=== PATIENT | male | born 1950 | race Caucasian/White ===

== ENCOUNTER 2016-10-24 16:06 | Inpatient (IN) | payer OTHER ==
--- NOTE | ~2016-10-24 | CN ---
Consultation Report [facility] [address] [place]. [address] NAME: ISHMAEL ALFREDO : 48 STATUS : ADM IN PAT#: [id number] AGE: 66 ADM/REG DATE : 10/24/16 MR#: [id number] REPORT SERV DATE: 10/24/16 DICTATED BY: ULISES ALCALA DATE: 10/24/16 REPORT STATUS : Draft TRANSCRIBED BY: MODL DATE: 10/24/16 CONSULTATION DATE OF CONSULTATION: 10/24/2016 REASON FOR CONSULTATION: Diabetes management. HISTORY OF PRESENT ILLNESS: The patient is a 66-year-old white gentleman with a past medical history of coronary artery disease, status post coronary artery bypass grafting by Dr. Broderick in 11/2015 as well as type 2 diabetes and hypertension, who presents to the CCU following an dch-up-swctdmqt cardiac arrest. The patient had been feeling well and was in the gym exercising, walking at a normal pace, doing his cool down on a treadmill. He was not doing anything extraordinary. No more exercises than he typically does when he suddenly lost consciousness and fell on the ground. Bystander said he lost a pulse, and he started doing CPR. When EMS arrived or when they put the AED on him, there was a shockable rhythm, so he got shocked one time and after that had return of spontaneous circulation with regaining his consciousness. The patient says that prior to the episode, he had no shortness of breath, no chest pain. He says he has been feeling well lately. He said really he has had no other issues right now. He is feeling well, just has a little bit of a headache, but otherwise doing okay. PAST MEDICAL HISTORY: 1. Coronary artery disease, status post coronary artery bypass grafting in 2016. 2. Hyperlipidemia. 3. Type 2 diabetes. 4. Hypertension. 5. Chronic anemia. HOME MEDICATIONS: See medication reconciliation form. ALLERGIES: NO KNOWN DRUG ALLERGIES. SOCIAL HISTORY: No tobacco or alcohol. Remote history of tobacco use. FAMILY HISTORY: Reviewed and positive for coronary artery disease, diabetes, and chronic kidney disease. REVIEW OF SYSTEMS: A 10-point review of systems is negative except as mentioned in the HPI. PHYSICAL EXAMINATION: VITAL SIGNS: Temperature 97.9, heart rate 64, respiratory rate 16, and blood pressure 125/65. GENERAL: No acute distress. Consultation Report [facility] [address] [place]. [address] NAME: ISHMAEL ALFREDO : [birth year] STATUS : ADM IN [facility]#: [id number] AGE: 66 ADM/REG DATE : 10/24/16 MR#: [id number] REPORT SERV DATE: 10/24/16 DICTATED BY: ULISES ALCALA DATE: 10/24/16 REPORT STATUS : Draft TRANSCRIBED BY: CASSANDRA DATE: 10/24/16 HEENT: Pupils are equal, round, and reactive to light. Extraocular movements are intact. Oropharynx is clear. Moist mucous membranes. NECK: Supple. Nontender. No lymphadenopathy. No thyromegaly. No jugular venous distention. LUNGS: Clear to auscultation bilaterally. CARDIOVASCULAR: Regular rate and rhythm. No murmurs, rubs, or gallops. ABDOMEN: Soft, nontender, nondistended. Positive bowel sounds. No hepatosplenomegaly. EXTREMITIES: No cyanosis, clubbing, or edema. NEUROLOGIC: Alert and oriented x3. Cranial nerves intact PSYCH: Mood appropriate. LABS AND IMAGING: Head CT with no acute process. Metabolic profile unremarkable. Troponin 0.06. Blood gas within normal limits. CBC within normal limits. ASSESSMENT AND PLAN: The patient is a 66-year-old gentleman with a past medical history of coronary artery disease, status post coronary bypass grafting in the last year as well as diabetes and hypertension, who presents with following an lmd-ds-rqfcfohv cardiac arrest. 1. Uuc-yt-brxgenjy cardiac arrest. It sounds like is either ventricular fibrillation or ventricular tachycardia as he required a shock by the defibrillator. We will defer to primary cardiac team for management of this. 2. Type [address] him on sliding scale. Hold his home metformin for now. Place him on diabetic diet. 3. Hypertension. Blood pressure is well controlled. We will continue his home medications. 4. The patient will be on deep venous thrombosis and gastrointestinal prophylaxis. 5. Appreciate the consult. We will continue to follow along with you. Please call with questions. FLAKITA/CASSANDRA Ulises Alcala MD / [id number] CC: Dav Baron M.D.
--- NOTE | ~2016-10-24 | CN ---
Consultation Report [facility] [address] [place]. [address] NAME: ISHMAEL ALFREDO : [birth year] STATUS : ADM IN PAT#: [id number] AGE: 66 ADM/REG DATE : 10/24/16 MR#: [id number] REPORT SERV DATE: 10/25/16 DICTATED BY: AXEL BARON DATE: 10/24/16 REPORT STATUS : Draft TRANSCRIBED BY: MODL DATE: 10/24/16 DATE OF CONSULTATION: 10/24/2016 PRIMARY PRIVATE CHEF: Dr. Hill. REFERRING PHYSICIAN: Dr. Carmichael in the ER. CHIEF COMPLAINT: Loss of consciousness. REASON FOR CONSULTATION: Possible out of hospital cardiac arrest. SOURCE: Patient, his family, and the chart. HISTORY OF PRESENT ILLNESS: Mr. Alfredo is a very pleasant 66-year-old white man with coronary artery disease status post coronary artery bypass grafting by Dr. Broderick at [facility] in 11/2015. He was in his usual state of health until today when he was walking on a treadmill and then lost consciousness and woke up in the ambulance on the way to [facility]. He lost consciousness and has no recollection of the events. Reportedly, he was resuscitated by EMS and flown by [employer] to [place]. He did not have any chest pain before the event and now has only mild soreness. No shortness of breath, palpitations, or syncope. He does not have any facial pain. He is bleeding from the skin on his face. EKG was obtained in the ER and we were asked to see him in consultation. REVIEW OF SYSTEMS: All other systems are negative. ALLERGIES: NO KNOWN DRUG ALLERGIES. MEDICATIONS: As per his home list include aspirin 81 mg a day, statin 20 mg a day, metoprolol 25 daily, metformin 1000 mg b.i.d., lisinopril 10 mg daily, fish oil, and fenofibrate. CARDIAC RISK FACTORS: Include diabetes, hypertension, cholesterol, family history, and former tobacco use. PAST MEDICAL HISTORY: Significant for coronary artery disease status post coronary artery bypass grafting to three vessels [address] Dr. Broderick in 11/2015. Denies any prior stroke or other surgeries. SOCIAL HISTORY: The patient lives in [place]. He is . He has one son who now has leukemia and needs a bone marrow transplant. 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 FAMILY HISTORY: Negative for coronary artery disease at young age. PHYSICAL EXAMINATION: Consultation Report [place] [id number] [facility]. [address] NAME: ISHMAEL ALFREDO : [birth year] STATUS : ADM IN [facility]#: [id number] AGE: 66 ADM/REG DATE : 10/24/16 MR#: [id number] REPORT SERV DATE: 10/25/16 DICTATED BY: AXEL BARON DATE: 10/24/16 REPORT STATUS : Draft TRANSCRIBED BY: CASSANDRA DATE: 10/24/16 GENERAL: He is a well developed, well nourished, elderly white man, in no acute distress. Bleeding from his face. VITAL SIGNS: The blood pressure is 110/64, pulse 70, oxygen saturation 98% on 2 L, temperature is grossly afebrile at 97.9 per his ER sheet. HEENT: There is dried blood all over his face. No bruising. Sclerae are anicteric. Lips are without cyanosis. Carotids are 2+ and symmetrical. NECK: No bruits. No JVD. No thyromegaly. LUNGS: Clear to auscultation. No use of accessory muscles. HEART: Regular rate and rhythm, without murmur, gallop, or rub. ABDOMEN: Positive bowel sounds. Soft, nontender, obese. CHEST: Healed sternotomy. EXTREMITIES: Pulses are 2+ and symmetrical. No cyanosis, clubbing, or edema. BACK: No CVA tenderness. MUSCULOSKELETAL: Good tone. NEUROLOGIC: Alert and oriented x3. IMAGING: EKG: Sinus rhythm with a first-degree AV block, nonspecific ST-T wave changes, appear similar from EKG 1 to EKG 2. LABORATORY DATA: I-STAT labs: Sodium 140, potassium 5.7, chloride 101, CO2 of 24, glucose 175, BUN 23, creatinine 0.9, hematocrit 44. IMPRESSION: 1. Status post syncopal episode or out of hospital cardiac arrest, successfully resuscitated. No strips available. Occurred while he was on a treadmill today. 2. Potassium 5.7 on i-STAT labs. 3. Coronary artery disease status post coronary artery bypass grafting on 11/24/[address] Broderick at [facility] reportedly to 3 vessels. 4. Cardiac risk factors including diabetes, hypertension, cholesterol, former tobacco, and positive family history. 5. Facial injuries. RECOMMENDATIONS: 1. Complete database, check potassium stat. 2. ICU care. 3. Clean and dress wounds. 4. Check serial EKGs and enzymes. 5. Beta-librado. 6. Stop OTTO inhibitor. 7. Echocardiogram for left ventricular systolic function. LAURE/CASSANDRA Consultation Report [place] [address] [address] NAME: ISHMAEL ALFREDO : [birth year] STATUS : ADM IN [facility]#: [id number] AGE: 66 ADM/REG DATE : 10/24/16 MR#: [id number] REPORT SERV DATE: 10/25/16 DICTATED BY: AXEL BARON DATE: 10/24/16 REPORT STATUS : Draft TRANSCRIBED BY: CASSANDRA DATE: 10/24/16 Axel Baron M.D. / [id number] CC: Axel Baron M.D.
--- NOTE | ~2016-10-24 | CN ---
Consultation Report [facility] [address] [place]. [address] NAME: ISHMAEL ALFREDO : [birth year] STATUS : ADM IN PAT#: [id number] AGE: 66 ADM/REG DATE : 10/24/16 MR#: [id number] REPORT SERV DATE: 10/25/16 DICTATED BY: ULISES PAYTON DATE: 10/25/16 REPORT STATUS : Draft TRANSCRIBED BY: MODL DATE: 10/25/16 EP CONSULTATION DATE OF CONSULTATION: INDICATION: Qqv-iw-laywdwhk cardiac arrest. HISTORY OF PRESENT ILLNESS: The patient is a 66-year-old white male, who underwent coronary bypass grafting on 11/24/2015 with a WU to the LAD and vein graft to OM2 and PDA. He has been asymptomatic since that time. He was working out at a gym in [place], [place] and after completing his workout (he states he usually runs about 3.8 to 3.6 miles an hour at 3% incline for 40 minutes), he lost consciousness. An off-duty master police detective was there, and an AED was present. The AED detected a lethal arrhythmia and delivered a shock. CPR was continued for one minute post shock. The patient came to and was immediately conscious without residual effects. He was life-flighted to [place]. He noted no symptoms prior to his event. He states when he awakened, it was a surprise to him that he was on the floor. CURRENT HOME MEDICATIONS: Aspirin 81 a day, fenofibrate 160 at h.s., lisinopril 10 per day, metformin 1000 b.i.d., metoprolol succinate 25 ER daily, multivitamins daily, nitroglycerin 0.4 p.r.n., omega-3 fatty acids 1000 daily, polyethylene glycol daily, rosuvastatin 20 at h.s.; and sitagliptin 100 per day. ALLERGIES OR INTOLERANCES: None known. SOCIAL HISTORY: Lives in [place]. . Has one son, who also has leukemia and needs a bone marrow transplant. 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 FAMILY HISTORY: Positive for siblings with coronary artery disease in their 50s and other relatives with coronary artery disease in their 50s. PAST MEDICAL HISTORY/REVIEW OF SYSTEMS: Positive for diabetes, hypertension, hyperlipidemia, and previous tobacco use. PHYSICAL EXAMINATION: GENERAL: Pleasant 66-year-old white male, no acute distress. VITAL SIGNS: Blood pressure 110/60, pulse 70, respirations 18. SKIN: No xanthelasmas. 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 NECK: JVD is not elevated. No carotid bruits. CHEST: No crackles. CARDIAC: S1 normal, S2 physiologic. Consultation Report [address] [place]. [address] NAME: ISHMAEL ALFREDO : [birth year] STATUS : ADM IN PAT#: [id number] AGE: 66 ADM/REG DATE : 10/24/16 MR#: [id number] REPORT SERV DATE: 10/25/16 DICTATED BY: ULISES PAYTON DATE: 10/25/16 REPORT STATUS : Draft TRANSCRIBED BY: CASSANDRA DATE: 10/25/16 ABDOMEN: Soft. EXTREMITIES: Without edema. No clubbing. NEUROLOGIC: No focal deficits. MUSCULOSKELETAL: No kyphosis. IMPRESSION: Rhb-ty-ptssicsd cardiac arrest with all indications suggestive of a VT/VF arrest. We will plan ICD implantation for secondary prevention. SARAH/CASSANDRA Ulises Payton M.D. / [id number] CC: Dav Baron M.D. [facility]
[2016-10-24 14:34] LABS: BASOPHILS 0.8 %; BASOPHILS ABSOLUTE 0.06 10/3/uL (0.0-0.16); EOSINOPHILS 9.2 %; EOSINOPHILS ABSOLUTE 0.73 10/3/uL (0.0-0.53); ER CBC TAT 0 Hrs 07 Mins; HEMATOCRIT 39.2 % (40.0-51.0); HEMOGLOBIN 13.4 g/dL (13.6-17.8); IMMATURE GRANULOCYTES 0.1 %; IMMATURE GRANULOCYTES ABSOLUTE 0.01 10/3/uL (0.0-0.11); LYMPHOCYTES 21.6 %; LYMPHOCYTES ABSOLUTE 1.71 10/3/uL (0.67-4.30); MEAN CORPUS HGB CONC 34.2 g/dL (32.0-36.0); MEAN CORPUSCULAR HEMOGLOB 29.8 pg (26.0-34.0); MEAN CORPUSCULAR VOLUME 87.1 fL (80-100); MEAN PLATELET VOLUME 10.3 fL (9.2-13.0); MONOCYTES 4.9 %; MONOCYTES ABSOLUTE 0.39 10/3/uL (0.21-1.20); NEUTROPHILS 63.4 %; NEUTROPHILS ABSOLUTE 5.01 10/3/uL (2.02-8.40); PLATELET COUNT 204 10/3/uL (150-400); WHITE BLOOD CELLS 7.9 10/3/uL (4.5-10.5)
[2016-10-24 14:35] LABS: MANUAL DIFF NO %
[2016-10-24 14:44] LABS: PARTIAL THROMBO TIME 25.2 SEC (22.5-37.2)
[2016-10-24 14:46] LABS: PROTIME (NOT ORD) 13.1 SEC (12.0-14.5)
[2016-10-24 14:58] LABS: A/G RATIO 1.1 (0.7-1.9); ALBUMIN 3.9 G/DL (3.5-5.0); ALKALINE PHOSPHATASE 71 U/L (45-117); BUN (BLOOD UREA NITROGEN) 17 MG/DL (6-23); CALCIUM, SERUM 8.7 MG/DL (8.5-10.4); CHLORIDE, SERUM 107 MMOL/L (96-112); CO2 (CARBON DIOXIDE) 26 MMOL/L (24-34); CREATININE 0.97 MG/DL (0.70-1.30); GFR AFRICAN AMERICAN 93 ML/MIN (>=60); GFR NON AFRICAN AMERICAN 80 ML/MIN (>=60); GLOBULIN 3.4 G/DL (2.5-4.1); GLUCOSE, SERUM 154 MG/DL (60-99); POTASSIUM, SERUM 4.1 MMOL/L (3.5-5.3); SGOT(AST) 105 U/L (5-40); SGPT(ALT) 86 U/L (5-65); TOTAL BILIRUBIN 0.6 MG/DL (0-1.2); TOTAL PROTEIN 7.3 G/DL (6.0-8.5)
[2016-10-24 14:59] LABS: ALLENS TEST Pos; BE (BASE EXCESS) -2.9 MEQ/L (0 +/- 2.5); CARBOXYHEMOGLOBIN 1.2 % (0-3); DEVICE NC; HCO3 (ACTUAL BICARBONATE) 21.8 MEQ/L (23-27); HEMOBLOGIN CONTENT 13.4 G/DL (14-18); INSTRUMENT SERIAL # 8087; METHEMOGLOBIN 0.3 % (0-3); O2 CONTENT 17.7 VOL% (18-24); PCO2 (CO2 TENSION) 38 MMHG (35-45); PO2 (O2 TENSION) 82 MMHG (79-93); SAMPLE Arterial; pH 7.38 (7.37-7.43)
[2016-10-24 15:00] LABS: SODIUM, SERUM 141 MMOL/L (135-148)
[2016-10-24 15:01] LABS: TROPONIN I 0.06 NG/ML (<0.05)
[~2016-10-24 16:06] MED LIST: ASAB PO; CENTRUM PO; CRESTOR20 MG PO; FERROUS SULF325 M1 PO; FISH-EPA1000 MG PO; GLUCOPHAGE1000 MG PO; HALF81 PO; JANUVIA100 MG PO; LOFIB160 PO; MIRALAX POWDER1 PKT PO; MULTIPLE VIT PO; NITROSTAT0.4 MG SL; NORCO1 TA1 PO; PLAVIX PO; PRAVACHOL40 MG PO; PRIN10 PO; PROCRIT10 SC; TOPXL25 PO
[2016-10-24 22:05] LABS: CK-MB 4.1 NG/ML; CPK 166 U/L (0-200)
[2016-10-24 22:06] LABS: TROPONIN I 0.47 NG/ML (<0.05)
[2016-10-25 02:40] LABS: BASOPHILS 0.5 %; BASOPHILS ABSOLUTE 0.05 10/3/uL (0.0-0.16); EOSINOPHILS 5.2 %; EOSINOPHILS ABSOLUTE 0.56 10/3/uL (0.0-0.53); HEMATOCRIT 35.6 % (40.0-51.0); HEMOGLOBIN 12.5 g/dL (13.6-17.8); IMMATURE GRANULOCYTES 0.2 %; IMMATURE GRANULOCYTES ABSOLUTE 0.02 10/3/uL (0.0-0.11); LYMPHOCYTES 19.7 %; LYMPHOCYTES ABSOLUTE 2.12 10/3/uL (0.67-4.30); MANUAL DIFF NO %; MEAN CORPUS HGB CONC 35.1 g/dL (32.0-36.0); MEAN CORPUSCULAR HEMOGLOB 30.6 pg (26.0-34.0); MEAN PLATELET VOLUME 10.1 fL (9.2-13.0); MONOCYTES 5.5 %; MONOCYTES ABSOLUTE 0.59 10/3/uL (0.21-1.20); NEUTROPHILS 68.9 %; NEUTROPHILS ABSOLUTE 7.43 10/3/uL (2.02-8.40); PLATELET COUNT 201 10/3/uL (150-400); RBC DISTRIBUTION WIDTH 12.9 % (12.0-16.0); RED CELL COUNT 4.09 10/6/uL (4.7-6.1); WHITE BLOOD CELLS 10.8 10/3/uL (4.5-10.5)
[2016-10-25 02:58] LABS: BUN (BLOOD UREA NITROGEN) 15 MG/DL (6-23); CALCIUM, SERUM 8.5 MG/DL (8.5-10.4); CHLORIDE, SERUM 106 MMOL/L (96-112); CO2 (CARBON DIOXIDE) 25 MMOL/L (24-34); CREATININE 0.84 MG/DL (0.70-1.30); GFR AFRICAN AMERICAN 105 ML/MIN (>=60); GFR NON AFRICAN AMERICAN 91 ML/MIN (>=60); POTASSIUM, SERUM 3.9 MMOL/L (3.5-5.3); SODIUM, SERUM 137 MMOL/L (135-148)
[2016-10-25 02:59] LABS: CK-MB 3.3 NG/ML; CPK 143 U/L (0-200); GLUCOSE, SERUM 194 MG/DL (60-99); TROPONIN I 0.26 NG/ML (<0.05)
[2016-10-25 09:14] LABS: CPK 124 U/L (0-200)
[2016-10-25 09:15] LABS: CK-MB 1.9 NG/ML; TROPONIN I 0.13 NG/ML (<0.05)
[2016-10-26 04:54] LABS: BASOPHILS 0.4 %; BASOPHILS ABSOLUTE 0.05 10/3/uL (0.0-0.16); EOSINOPHILS 17.8 %; HEMATOCRIT 38.4 % (40.0-51.0); HEMOGLOBIN 13.4 g/dL (13.6-17.8); IMMATURE GRANULOCYTES 0.2 %; IMMATURE GRANULOCYTES ABSOLUTE 0.02 10/3/uL (0.0-0.11); LYMPHOCYTES ABSOLUTE 2.47 10/3/uL (0.67-4.30); MEAN CORPUS HGB CONC 34.9 g/dL (32.0-36.0); MEAN CORPUSCULAR HEMOGLOB 30.3 pg (26.0-34.0); MEAN CORPUSCULAR VOLUME 86.9 fL (80-100); MEAN PLATELET VOLUME 10.2 fL (9.2-13.0); MONOCYTES 4.7 %; MONOCYTES ABSOLUTE 0.53 10/3/uL (0.21-1.20); NEUTROPHILS 54.9 %; NEUTROPHILS ABSOLUTE 6.18 10/3/uL (2.02-8.40); PLATELET COUNT 202 10/3/uL (150-400); RBC DISTRIBUTION WIDTH 12.8 % (12.0-16.0); RED CELL COUNT 4.42 10/6/uL (4.7-6.1); WHITE BLOOD CELLS 11.3 10/3/uL (4.5-10.5)
[2016-10-26 04:56] LABS: MANUAL DIFF NO %
[2016-10-26 05:09] LABS: BUN (BLOOD UREA NITROGEN) 14 MG/DL (6-23); CHLORIDE, SERUM 103 MMOL/L (96-112); CO2 (CARBON DIOXIDE) 23 MMOL/L (24-34); CREATININE 0.86 MG/DL (0.70-1.30); GFR AFRICAN AMERICAN 104 ML/MIN (>=60); GFR NON AFRICAN AMERICAN 90 ML/MIN (>=60); POTASSIUM, SERUM 4.2 MMOL/L (3.5-5.3); SODIUM, SERUM 135 MMOL/L (135-148)
[2016-10-26 05:15] LABS: GLUCOSE, SERUM 146 MG/DL (60-99)
== END 2016-10-26 11:55 | disposition home or self-care (01) | DRG 245 ==
LOC: ER 16:06 → CCU 16:17 → SSU1 10-25 10:19 → CCU 10-25 10:47 → SSU1 10-25 10:53
PROVIDERS: Emergency Medicine; Internal Medicine Cardiovascular Disease; Nurse Practitioner Family
PROC: 0JH608Z Insertion of Defibrillator Generator into Chest Subcutaneous Tissue and Fascia, Open Approach (ICD-10-PCS; principal; 2016-10-25)
PROC: 4A023N7 Measurement of Cardiac Sampling and Pressure, Left Heart, Percutaneous Approach (ICD-10-PCS; principal; 2016-10-25)
PROC: 0JH60PZ Insertion of Cardiac Rhythm Related Device into Chest Subcutaneous Tissue and Fascia, Open Approach (ICD-10-PCS; 2016-10-25)
PROC: B2151ZZ Fluoroscopy of Left Heart using Low Osmolar Contrast (ICD-10-PCS; 2016-10-25)
PROC: B2131ZZ Fluoroscopy of Multiple Coronary Artery Bypass Grafts using Low Osmolar Contrast (ICD-10-PCS; 2016-10-25)
PROC: B2111ZZ Fluoroscopy of Multiple Coronary Arteries using Low Osmolar Contrast (ICD-10-PCS; 2016-10-25)
PROC: B2181ZZ Fluoroscopy of Left Internal Mammary Bypass Graft using Low Osmolar Contrast (ICD-10-PCS; 2016-10-25)
DX: I49.01 Ventricular fibrillation (principal); E87.5 Hyperkalemia; I10 Essential (primary) hypertension; I46.9 Cardiac arrest, cause unspecified; I25.10 Atherosclerotic heart disease of native coronary artery without angina pectoris; E11.9 Type 2 diabetes mellitus without complications; E78.00 Pure hypercholesterolemia, unspecified; S00.83XA Contusion of other part of head, initial encounter; W01.0XXA Fall on same level from slipping, tripping and stumbling without subsequent striking against object, initial encounter; I47.2 Ventricular tachycardia; Z95.1 Presence of aortocoronary bypass graft; Z82.49 Family history of ischemic heart disease and other diseases of the circulatory system; Z87.891 Personal history of nicotine dependence; Y93.A1 Activity, exercise machines primarily for cardiorespiratory conditioning; Y92.9 Unspecified place or not applicable
CPT/HCPCS: 33249; 36600; 70450; 71010; 80048; 80053; 82550; 82553; 82805; 82962; 83735; 84484; 85025; 85610; 85730; 93005; 93306; 93459; 93641; 99152; 99285; A9270-GY; C1722; C1769; C1892; C1898; J0690; J2250; J3010; Q9967